=== PATIENT | female | born 1960 | race Two or more races ===

== ENCOUNTER 2024-05-28 19:32 | Emergency (ER) | payer MEDICAID, SELFPAY ==
[2024-05-28 19:47] VITALS: PULSE 103; O2SAT 99
--- NOTE | 2024-05-28 19:49 | EDNOTE_ITS ---
ED Syncope RME/HPI General Chief Complaint: Syncope / Near Syncope Stated Complaint: SYNCOPE Time Seen by Provider: 05/28/24 19:46 Arrival date/time: 05/28/24 19:32 RME / HPI RME / HPI narrative: 63 yo female patient BIBA for reported syncopal episode while arguing with family. She was standing next to family members and they reportedly lowered her to the ground. Episode lasted 10-15 seconds, then patient was alert and back to normal. No injury. Related Data Home Medications ?Medication ?Instructions ?Recorded ?Confirmed Fluoxetine Hcl 40 mg PO HS Depression #0 ca ps 01/22/13 06/04/17 gabapentin 300 mg capsule 300 mg PO QDAY JOINT PAIN #9 0 caps 01/22/13 06/04/17 loratadine 10 mg tablet 10 mg PO DAILY Allergies ##0 01/22/13 06/04/17 raloxifene 60 mg tablet (Evista) 60 mg PO DAILY CANCER #30 tabs 01/22/13 06/04/17 Aspirin Ec * (ECOTRIN *) 81 mg PO QDAY ##0 08/30/16 0 06/04/17 Losartan Potassium * (COZAAR *) 50 mg PO QDAY #0 tabs 08/30/16 06/04/17 Trazodone * (DESYREL *) 50 mg PO HS #0 tabs 08/30/16 06/04/17 aripiprazole 2 mg tablet (Abilify) 2 mg PO HS #0 tabs 08/30/16 06/04/17 atenolol 25 mg tablet (Tenormin) 25 mg PO QAM #0 tabs 08/30/16 06/04/17 clonazepam 0.5 mg tablet (Klonopin) 0.5 mg PO BID PRN ANXIETY #0 tabs 08/30/16 06/04/17 simvastatin 40 mg tablet (Zocor) 40 mg PO HS #0 tabs 0 08/30/16 06/04/17 linagliptin 2.5 mg-metformin 850 1 tab PO BID 05/25/17 06/04/17 mg tablet (Jentadueto) Previous Rx's ?Medication ?Instructions ?Recorded hydrocodone 5 mg-acetaminophen 325 1 tab PO Q6H PRN pa in #14 tabs 05/25/17 mg tablet ([place]) acetaminophen 300 mg-codeine 30 mg 1 tab PO Q6H PRN pa in #15 tabs 12/24/22 tablet hydrocodone 5 mg-acetaminophen 325 1 tab PO Q6H PRN pa in #15 tabs 12/24/22 mg tablet hydrocodone 5 mg-acetaminophen 325 1 tab PO Q6H PRN pa in #15 tabs 12/24/22 mg tablet ibuprofen 400 mg tablet 400 mg PO Q6H PRN pain #20 t abs 12/24/22 Allergies Allergy/AdvReac Type Severity Reaction Status Date / Time No Known Allergies Allergy Verified 06/04/17 19:13 Review of Systems Review of Systems Systems Reviewed: All systems reviewed, normal except as documented Discharge Plan Prescriptions/Referrals Prescriptions/Med Rec: No Action gabapentin 300 MG capsule 300 mg PO QDAY Qty: 90 raloxifene [Evista] 60 MG tablet 60 mg PO DAILY Qty: 30 loratadine 10 MG tablet 10 mg PO DAILY Qty: 0 Fluoxetine Hcl 20 MG capsule 40 mg PO HS Qty: 0 Aspirin Ec * (ECOTRIN *) 81 MG TABLET.DR 81 mg PO QDAY Qty: 0 clonazepam [Klonopin] 0.5 MG tablet 0.5 mg PO BID PRN (Reason: ANXIETY) Qty: 0 atenolol [Tenormin] 25 MG tablet 25 mg PO QAM Qty: 0 simvastatin [Zocor] 40 MG tablet 40 mg PO HS Qty: 0 aripiprazole [Abilify] 2 MG tablet 2 mg PO HS Qty: 0 Losartan Potassium * (COZAAR *) 50 MG tablet 50 mg PO QDAY Qty: 0 Trazodone * (DESYREL *) 50 MG tablet 50 mg PO HS Qty: 0 linagliptin-metformin [Jentadueto] 2.5-850 mg Tablet 1 tab PO BID hydrocodone-acetaminophen [[place]] 5-325 mg tablet 1 tab PO Q6H PRN (Reason: pain) Qty: 14 0RF hydrocodone-acetaminophen 5-325 mg tablet 1 tab PO Q6H MDD 4 PRN (Reason: pain) Qty: 15 0RF acetaminophen-codeine 300-30 mg tablet 1 tab PO Q6H PRN (Reason: pain) Qty: 15 0RF ibuprofen 400 mg tablet 400 mg PO Q6H PRN (Reason: pain) Qty: 20 0RF hydrocodone-acetaminophen 5-325 mg tablet 1 tab PO Q6H MDD 4 PRN (Reason: pain) Qty: 15 0RF Patient/Caregiver Discharge Instructions Print Language: Trinidadian
--- NOTE | 2024-05-28 19:56 | XR_ITS ---
Examination: AP chest single view Technique one AP portable upright chest single view Exam date and time: May 28, 2024 1936 hrs. Indications: Syncopal episode today. Findings: Mild vascular congestion. Normal heart size No aspiration pneumonia Impression: No aspiration pneumonia
--- NOTE | 2024-05-28 19:56 | EKG_ITS ---
[facility] Test Date: 2024-05-28 Pat Name: YAKOV XIE Department: Room: - Gender: Female Supervisor Mending: : 1960 Requested By: Esme Gómez Order Number: [id number] Reading MD: Esme Gómez Measurements Intervals [place] Rate: 98 P: 39 NH: 142 QRS: -4 QRSD: 86 T: 24 QT: 336 QTc: 430 Interpretive Statements SINUS RHYTHM POSSIBLE LEFT ATRIAL ENLARGEMENT [-0.1mV P-WAVE IN V1/V2] POSSIBLE LEFT VENTRICULAR HYPERTROPHY [VOLTAGE CRITERIA PLUS LAE OR QRS WIDENING] No previous ECG available for comparison /store/S0/[id number]
[2024-05-28 20:29] VITALS: BP 159/92; PULSE 104; RESP 18; TEMP 37.2; O2SAT 96
--- NOTE | 2024-05-28 20:41 | XR_ITS ---
Examination: CT brain head without contrast. 2-D sagittal coronal reconstructions Date and time of exam:May 28, 2024 1034 hrs. Indications: Syncopal episode 3 hours ago CTDI: vol (mGy):43.7 DLP: (mGycm):769 Technique: Multiple CT axial sections of the brain have been obtained, 5 mm slice thickness. Contrast has not been administered. 2-D sagittal, coronal reconstructions have been obtained Low dose protocols were performed. One or more of the following dose reduction techniques were used; automated exposure control, adjustment of the mA and/or KV according to patient size, use of iterative reconstruction technique. Findings: No significant ventricular enlargement. Intra-axial or extra-axial hemorrhage density is not seen. No mass effect or midline shift Basal cisterns are not remarkable. Fourth ventricle is midline. Cranial vault intact. Impression: Negative for acute hemorrhage, mass effect or midline shift Advise clinical correlation and follow-up accordingly
[2024-05-28 20:54] LABS: Basophils % (Auto) 0 % (0-2.5); Eosinophils # (Auto) 0.3 Thou/mm3 (0.0-0.5); Eosinophils % (Auto) 3 % (0-10); Hematocrit 49.8 % (36.0-46.0); Hemoglobin 15.7 g/dL (12.0-16.0); Immature Granulocytes % (Auto) 0 % (0-0); Immature Granulocytes Auto 0.03 Thou/mm3 (0.00-0.00); Lymphocytes % (Auto) 20 % (10-50); Mean Corpuscular HGB Conc 31.5 g/dl (31.0-37.0); Mean Corpuscular Hemoglobin 25.5 pg (25.0-35.0); Mean Corpuscular Volume 81 fL (80-100); Monocytes # (Auto) 0.7 Thou/mm3 (0.0-0.8); Monocytes % (Auto) 7 % (0-12); Neutrophils % (Auto) 70 % (37-80); Nucleated Red Blood Cell % 0 /100 WBC (0); Platelet Count 290 Thou/mm3 (140-440); RDW Standard Deviation 43.9 fL (36.4-46.3); Red Blood Count 6.15 Miln/mm3 (4.00-5.20)
[2024-05-28 21:05] LABS: Partial Thromboplastin Time 27.2 Seconds (22.0-36.0); Prothrombin Time 11.1 Seconds (9.0-12.2)
[2024-05-28 21:12] LABS: Anion Gap 7 (7-16); BUN/Creatinine Ratio 20 Ratio (12-20); Blood Urea Nitrogen 16 mg/dL (9-23); Carbon Dioxide 24.7 mMol/L (20.0-31.0); Chloride 109 mMol/L (98-107); Creatinine (Component) 0.8 mg/dL (0.6-1.3); Glucose 193 mg/dL (74-106); Sodium 141 mMol/L (136-145); eGFR > 60 See Note
[2024-05-28 21:13] LABS: Alanine Aminotransferase 12 U/L (10-49); Albumin, Serum 3.9 gm/dL (3.4-4.8); Albumin/Globulin Ratio 1.1 (1.2-2.2); Alkaline Phosphatase 77 U/L (46-116); Aspartate Amino Transferase 12 U/L (0-34); Bilirubin,Total 0.4 mg/dL (0.3-1.2); Calcium (Corrected) 9.1 mg/dL (8.5-10.1); Globulin 3.5 gm/dL (2.3-3.5); Lipase 54 U/L (12-53); Osmolality,Calculated 287 (275-295); Total Protein 7.4 gm/dL (5.7-8.2); Troponin I < 0.002 ng/mL (0.0-0.045)
[2024-05-28 21:29] LABS: B-Type Natriuretic Peptide 73 pg/mL (0-100)
[2024-05-28 22:21] VITALS: BP 145/90; PULSE 87; RESP 18; O2SAT 96
--- NOTE | 2024-05-28 23:06 | PD.EDADDENDU ---
Emergency Room Addendum Addendum Narrative: 2300: Care assumed from Dr. Steven. Past medical, surgical, social and family history reviewed. Vitals and home medications reviewed. Results and treatment plan discussed. I will assume the care of the patient at this time and will follow the patient, pending CT head. Please refer to the emergency department record for history and examination from initial visit.
[2024-05-28 23:46] VITALS: RESP 18
== END 2024-05-28 23:47 | disposition home or self-care (01) ==
PROVIDERS: Emergency Medicine; Emergency Provider Emergency Medicine; PCP Family Medicine
DX: R55 Syncope and collapse (principal)
CPT/HCPCS: 36415; 70450; 71045; 80053; 83690; 83735; 83880; 84484; 85025; 85610; 85730; 93005; 99284

== ENCOUNTER → 2024-06-14 | Outpatient (CLI) | payer MEDICAID, SELFPAY ==
--- NOTE | 2024-06-14 10:30 | XR_ITS ---
Examination: CT abdomen, without intravenous contrast. CT abdomen, with intravenous contrast. Sagittal and coronal 2-D reconstructions. Time of exam:June 14, 2024 1112 hours Comparison June 13, 2009 INDICATIONS: Right upper abdominal pain left upper abdominal pain beginning 3 months ago, history right kidney mass on ultrasound examination performed one month ago CTDI: vol (mGy) 11.6 DLP: (mGycm) 401 Technique: Multiple 3.0 mm axial noncontrast images of the abdomen have been obtained. Multiple 3.0 mm axial images post administration 60 cc Isovue-370 intravenous contrast have been obtained. Sagittal and coronal 3-D reconstructions have been obtained. Low dose protocols were performed. One or more of the following dose reduction techniques were used; automated exposure control, adjustment of the mA and/or KV according to patient size, use of iterative reconstruction technique. Findings: Fatty infiltration throughout the liver Spleen not enlarged No gallstones Right renal tumor mass upper pole, at least 12 x 11 x 10 cm with irregular margins enhancement The right renal vein is not well visualized No left renal mass Aorta is not enlarged No bowel obstruction IMPRESSION: 12 x 11 x 10 cm right renal tumor mass, consider MRI abdomen kidneys follow-up for best staging
== END | disposition home or self-care (01) ==
LOC: CCTX 10:08
PROVIDERS: Referring Provider Nurse Practitioner; Visit Provider Nurse Practitioner
DX: R19.00 Intra-abdominal and pelvic swelling, mass and lump, unspecified site (principal)
CPT/HCPCS: 74170; A4649; Q9967

== ENCOUNTER → 2024-06-22 | Outpatient (CLI) | payer MEDICAID, SELFPAY ==
--- NOTE | 2024-06-22 16:30 | XR_ITS ---
Examination: MRI abdomen with intravenous contrast. MRI abdomen without intravenous contrast. Date and time of exam: June 22, 2024, 1705 hours INDICATIONS: CT abdomen and pelvis June 14, 2024 upper pole right renal tumor mass 12 x 11 x 10 cm Technique: Multiple axial, sagittal and coronal sections of the abdomen obtained. Transverse images, TR 6020, TE 107. T1 weighted transverse images, TR 582, TE 9.5. T2-weighted sagittal images, TR 4000, TE 105. T2-weighted sagittal images, TR 4000, TE 5. Coronal images, TR 4210, TE 107. Axial and coronal images are obtained post 20 cc intravenous injection, gadolinium. Findings: No focal liver lesions Irregularly enhancing upper pole right renal tumor mass, 12 x 11 x 13 cm No obvious thrombus in the right renal vein Inferior vena cava is patent No ascites Spleen is not enlarged No left renal mass IMPRESSION: Irregularly enhancing upper pole right renal tumor mass, 12 x 11 x 13 cm as above
== END | disposition home or self-care (01) ==
PROVIDERS: PCP Nurse Practitioner; Referring Provider Physician Assistant; Visit Provider Physician Assistant
DX: N28.89 Other specified disorders of kidney and ureter (principal)
CPT/HCPCS: 74183; A4649; A9579

== ENCOUNTER → 2024-07-03 | Outpatient (CLI) | payer MEDICAID, SELFPAY ==
--- NOTE | 2024-07-03 07:36 | XR_ITS ---
Examination: Shoulder,right, 3 views Technique: Shoulder AP internal rotation, AP external rotation, Y view shoulder, 3 views Exam date and time :July 03, 2024 0800 hours INDICATIONS: Right shoulder pain and stiffness beginning 3 months ago. FINDINGS: Moderate osteopenia Mild calcific tendinitis Moderate narrowing glenohumeral joint No fracture IMPRESSION: Mild calcific tendinitis Moderate narrowing glenohumeral joint
== END | disposition home or self-care (01) ==
LOC: CDIM 07:23
PROVIDERS: Referring Provider Specialist; Visit Provider Specialist
DX: M75.31 Calcific tendinitis of right shoulder (principal); M25.811 Other specified joint disorders, right shoulder
CPT/HCPCS: 73030

== ENCOUNTER 2024-08-25 09:57 | Emergency (ER) | payer MEDICAID, SELFPAY ==
[2024-08-25 10:01] VITALS: PULSE 96; RESP 18; O2SAT 100; BMI 24.8
[2024-08-25 10:02] VITALS: BP 171/101; PULSE 106; RESP 18; TEMP 36.6; O2SAT 97
--- NOTE | 2024-08-25 10:19 | EDNOTE_ITS ---
ED General RME/HPI General Chief complaint: Urogenital-Female Stated complaint: URINATING BLOOD Time Seen by Provider: 08/25/24 10:21 Arrival date/time: 08/25/24 09:57 Limitations: no limitations RME / HPI RME / HPI narrative: DR. MINOR MAIN ED EVALUATION: 64 year old female with past medical history significant for right kidney mass diagnosed 06/2024 and left breast cancer in the past presents to the Emergency Department BIBA from home with complaints of hematuria, dark blood, and right flank pain. Pain is described as aching and rated 10/10. Per EMS, patient was hypertensive at 181/100, HR of 96, and satting at 97% on room air. Other PMHx include hypertension. Family history is significant for breast cancer and kidney cancer. Related Data Home Medications ?Medication ?Instructions ?Recorded ?Confirmed Fluoxetine Hcl 40 mg PO HS Depression #0 ca ps 01/22/13 06/04/17 gabapentin 300 mg capsule 300 mg PO QDAY JOINT PAIN #9 0 caps 01/22/13 06/04/17 loratadine 10 mg tablet 10 mg PO DAILY Allergies ##0 01/22/13 06/04/17 raloxifene 60 mg tablet (Evista) 60 mg PO DAILY CANCER #30 tabs 01/22/13 06/04/17 Aspirin Ec * (ECOTRIN *) 81 mg PO QDAY ##0 08/30/16 0 06/04/17 Losartan Potassium * (COZAAR *) 50 mg PO QDAY #0 tabs 08/30/16 06/04/17 Trazodone * (DESYREL *) 50 mg PO HS #0 tabs 08/30/16 06/04/17 aripiprazole 2 mg tablet (Abilify) 2 mg PO HS #0 tabs 08/30/16 06/04/17 atenolol 25 mg tablet (Tenormin) 25 mg PO QAM #0 tabs 08/30/16 06/04/17 clonazepam 0.5 mg tablet (Klonopin) 0.5 mg PO BID PRN ANXIETY #0 tabs 08/30/16 06/04/17 simvastatin 40 mg tablet (Zocor) 40 mg PO HS #0 tabs 0 08/30/16 06/04/17 linagliptin 2.5 mg-metformin 850 1 tab PO BID 05/25/17 06/04/17 mg tablet (Jentadueto) Previous Rx's ?Medication ?Instructions ?Recorded hydrocodone 5 mg-acetaminophen 325 1 tab PO Q6H PRN pa in #14 tabs 05/25/17 mg tablet ([place]) acetaminophen 300 mg-codeine 30 mg 1 tab PO Q6H PRN pa in #15 tabs 12/24/22 tablet hydrocodone 5 mg-acetaminophen 325 1 tab PO Q6H PRN pa in #15 tabs 12/24/22 mg tablet hydrocodone 5 mg-acetaminophen 325 1 tab PO Q6H PRN pa in #15 tabs 12/24/22 mg tablet ibuprofen 400 mg tablet 400 mg PO Q6H PRN pain #20 t abs 12/24/22 Allergies Allergy/AdvReac Type Severity Reaction Status Date / Time No Known Allergies Allergy Verified 06/04/17 19:13 Review of Systems Review of Systems Systems Reviewed: All systems reviewed, normal except as documented Past Medical History Past Medical History CARDIAC: Positive Cardiac Disorders, Hypercholesterolemia and Hypertension RESPIRATORY: Positive Asthma GASTROINTESTINAL: Positive Gastrointestinal Disorders and Gastroesophageal Reflux Disease REPRODUCTIVE: Positive Breast Cancer MUSCULOSKELETAL: Positive Osteoporosis ENDOCRINE: Positive Endocrine Disorders and Diabetes Mellitus Type 2 OTHER HISTORY: Positive Breast Cancer Family History FAMILY HISTORY: Positive Family Cardiac Disorders and Family Cancer Surgical History SURGICAL: Positive Hysterectomy Social History SMOKING STATUS: Never smoker SUBSTANCE USE: does not use ALCOHOL: Never ED Exam General Limitations: Present no limitations General appearance: Present alert and other (tearful, anxious, elevated blood pressure 181/100) Head Head exam: Present atraumatic, normocephalic and normal inspection Eye Eye exam: Present normal appearance, PERRL and EOMI ENT ENT exam: Present normal exam, normal oropharynx and mucous membranes moist Neck Neck exam: Present normal inspection, full ROM and trachea midline Chest Chest inspection: Present normal inspection and symmetric chest wall rise Respiratory Respiratory exam: Present normal lung sounds bilaterally Cardiovascular Cardiovascular exam: Present regular rate, normal rhythm and normal heart sounds Abdominal Exam Abdominal exam: Present soft, tenderness (right flank tenderness) and normal bowel sounds Extremities Exam Extremities exam: Present normal inspection and full ROM Back Exam Back exam: Present normal inspection and full ROM Neurological Exam Neurological exam: Present alert, oriented X3 and CN II-XII intact Psychiatric Psychiatric exam: Present normal affect and normal mood Skin Skin exam: Present warm, dry, intact and normal color Course Quality Measures none Orders Category Date Time Status Lokie Engineer NOW Care 08/25/24 10:22 Active Continuous Pulse Oximetry NOW Care 08/25/24 10:22 Active EKG (ED ONLY) *Do not use* NOW Care 08/25/24 10:22 Completed Insert IV NOW Care 08/25/24 10:22 Active EKG (ED Only) Stat Exams 08/25/24 10:22 Draft XR chest 1V portable Stat Exams 08/25/24 10:22 Completed CBC Stat Lab 08/25/24 10:50 Completed Comprehensive Metabolic Panel Stat Lab 08/25/24 10:50 Completed Partial Thromboplastin Time Stat Lab 08/25/24 10:50 Completed Prothrombin Time with INR Stat Lab 08/25/24 10:50 Completed Troponin I Stat Lab 08/25/24 10:50 Completed Urinalysis Stat Lab 08/25/24 12:55 Completed Morphine Inj Med 08/25/24 10:25 Discontinued 4 mg IVP X1 ONE Ondansetron Inj [Zofran Inj] Med 08/25/24 10:25 Discontinued 4 mg IVP X1 ONE Sodium Chloride 0.9% 1000 ml [Ns] 1,000 ml Med 08/25/24 10:22 Active IV 100 mls/hr cefTRIAXone [Rocephin] 2 gm Med 08/25/24 14:05 Discontinued SODIUM CHLORIDE 0.9% ([place]) [Ns 0.9% (P)] 50 ml IV X1 Vital Signs Vital signs: Vital Signs Temperature 97.9 F 08/25/24 10:02 Pulse Rate 106 H 08/25/24 10:02 Respiratory Rate 18 08/25/24 10:02 Blood Pressure 171/101 H 08/25/24 10:02 Pulse Oximetry (%) 97 08/25/24 10:02 Oxygen Delivery Method Room Air 08/25/24 10:02 Discharge Plan Plan Patient Disposition: HOME (Self Care) Patient condition on transfer: Stable Prescriptions/Referrals Prescriptions/Med Rec: No Action gabapentin 300 MG capsule 300 mg PO QDAY Qty: 90 raloxifene [Evista] 60 MG tablet 60 mg PO DAILY Qty: 30 loratadine 10 MG tablet 10 mg PO DAILY Qty: 0 Fluoxetine Hcl 20 MG capsule 40 mg PO HS Qty: 0 Aspirin Ec * (ECOTRIN *) 81 MG TABLET.DR 81 mg PO QDAY Qty: 0 clonazepam [Klonopin] 0.5 MG tablet 0.5 mg PO BID PRN (Reason: ANXIETY) Qty: 0 atenolol [Tenormin] 25 MG tablet 25 mg PO QAM Qty: 0 simvastatin [Zocor] 40 MG tablet 40 mg PO HS Qty: 0 aripiprazole [Abilify] 2 MG tablet 2 mg PO HS Qty: 0 Losartan Potassium * (COZAAR *) 50 MG tablet 50 mg PO QDAY Qty: 0 Trazodone * (DESYREL *) 50 MG tablet 50 mg PO HS Qty: 0 linagliptin-metformin [Jentadueto] 2.5-850 mg Tablet 1 tab PO BID hydrocodone-acetaminophen [[place]] 5-325 mg tablet 1 tab PO Q6H PRN (Reason: pain) Qty: 14 0RF hydrocodone-acetaminophen 5-325 mg tablet 1 tab PO Q6H MDD 4 PRN (Reason: pain) Qty: 15 0RF acetaminophen-codeine 300-30 mg tablet 1 tab PO Q6H PRN (Reason: pain) Qty: 15 0RF ibuprofen 400 mg tablet 400 mg PO Q6H PRN (Reason: pain) Qty: 20 0RF hydrocodone-acetaminophen 5-325 mg tablet 1 tab PO Q6H MDD 4 PRN (Reason: pain) Qty: 15 0RF Referrals: Casper Kennedy MD [Primary Care Provider] - In 1 week Problem List Clinical Impression: Hyperglycemia, Microscopic hematuria, Renal carcinoma Patient/Caregiver Discharge Instructions Additional Instructions: Please follow-up with your primary care physician within 2-3 days. Return to the Emergency Department as needed. Print Language: [place] Islander Stand Alone Forms: Stephania Award Info., Patient Portal Info Letter MDM Narrative [facility] hospital course: I, Rosey Carlson, am scribing for and in the presence of Dr. Minor. Labs are okay. Hyperglycemia, blood glucose was 163. Urine blood noted, microscopic hematuria. WBC is 7.8, no infection. Clinical Information Provided by patient and EMS Medical Records Reviewed [facility] and EMS Meds/Rx Considered, not Ordered None Labs/Rad/Tests considered, not Ordered None Chronic Illness/Social Conditions Add or document further as needed: Right kidney mass diagnosed 06/2024, left breast cancer, and hypertension. Family history is significant for breast cancer and kidney cancer. EKG Interpretation EKG #1: Date/time of EK08/25/24 10:34 am EKG interpretation: sinus rhythm, rate 85, no acute changes, TN interval 143 ms, QRS duration 85 ms, QT/QTc 360/402, P-R-T axis 48, 2, 29 Lab Interpretation Labs: see narrative above Imaging Radiology reports / interpretation(s): Procedure(s): XR chest 1V portable Accession Number(s): [id number] cc: Dominick Minor MD; Burak Palomares MD~ Examination: AP chest single view Technique one AP portable upright chest single view Indications: Shortness of breath coughing beginning 2 days ago. Findings: Mild bronchitis pattern. Normal heart size No lobar pneumonia or pulmonary edema Impression: Mild basilar bronchitis pattern Dictated By: Burak Palomares MD Medication Administration(s) Medication Administration History Sodium Chloride (Ns) 1,000 mls @ 100 mls/hr IV .Q10H ONE Stop: 08/25/24 20:21 Last Admin: 08/25/24 10:54 Dose: 100 mls/hr Documented By: TM Discontinued Medications Ceftriaxone Sodium 2 gm/ (Sodium Chloride) 50 mls @ 100 mls/hr IV X1 ONE Stop: 08/25/24 14:34 Last Admin: 08/25/24 14:24 Dose: 100 mls/hr Documented By: Morphine Sulfate (Morphine Sulf Inj 10 Mg/Ml Vial) 4 mg IVP X1 ONE Stop: 08/25/24 10:26 Last Admin: 08/25/24 10:51 Dose: 4 mg Documented By: TM Ondansetron HCl (Ondansetron Inj 2 Mg/Ml Inj 2 Ml) 4 mg IVP X1 ONE; Protocol Stop: 08/25/24 10:26 Last Admin: 08/25/24 10:51 Dose: 4 mg Documented By: TM Diagnosis Differential diagnosis: Kidney mass, kidney cancer, UTI Most likely dx, and/or detailed dx discussion: Hyperglycemia Microscopic hematuria Renal carcinoma Dispositon Disposition: Discharge Home
--- NOTE | 2024-08-25 10:22 | EKG_ITS ---
[facility] Test Date: 2024-08-25 Pat Name: YAKOV XIE Department: Room: - Gender: Female Cell [employer] Department Supervisor: : 1960 Requested By: Dominick Strickland Order Number: [id number] Reading MD: Dominick Strickland Measurements Intervals [place] Rate: 85 P: 48 [place]: 143 QRS: 2 QRSD: 85 T: 29 QT: 360 QTc: 430 Interpretive Statements SINUS RHYTHM Compared to ECG 05/28/2024 20:34:01 No significant changes /store/S0/[id number]
--- NOTE | 2024-08-25 10:22 | XR_ITS ---
Examination: AP chest single view Technique one AP portable upright chest single view Indications: Shortness of breath coughing beginning 2 days ago. Findings: Mild bronchitis pattern. Normal heart size No lobar pneumonia or pulmonary edema Impression: Mild basilar bronchitis pattern
[2024-08-25] MEDS: MORPHINE SULF INJ 10 MG/ML VIAL 4 MG IVP (10:51)
[2024-08-25] MEDS: ONDANSETRON INJ 2 MG/ML INJ 2 ML 4 MG IVP (10:51)
[2024-08-25] MEDS: SODIUM CHLORIDE 0.9% 1000 ML 1,000 ML 100 ML IV (10:54)
[2024-08-25 11:19] LABS: Basophils % (Auto) 0 % (0-2.5); Eosinophils # (Auto) 0.1 Thou/mm3 (0.0-0.5); Eosinophils % (Auto) 1 % (0-10); Hematocrit 48.5 % (36.0-46.0); Hemoglobin 15.7 g/dL (12.0-16.0); Immature Granulocytes % (Auto) 0 % (0-0); Immature Granulocytes Auto 0.02 Thou/mm3 (0.00-0.00); Lymphocytes # (Auto) 1.6 Thou/mm3 (1.0-4.8); Lymphocytes % (Auto) 20 % (10-50); Mean Corpuscular HGB Conc 32.4 g/dl (31.0-37.0); Mean Corpuscular Hemoglobin 25.8 pg (25.0-35.0); Mean Corpuscular Volume 80 fL (80-100); Monocytes # (Auto) 0.6 Thou/mm3 (0.0-0.8); Monocytes % (Auto) 7 % (0-12); Neutrophils # (Auto) 5.5 Thou/mm3 (1.8-7.7); Neutrophils % (Auto) 70 % (37-80); Nucleated Red Blood Cell % 0 /100 WBC (0); Platelet Count 252 Thou/mm3 (140-440); RDW Standard Deviation 43.8 fL (36.4-46.3); Red Blood Count 6.09 Miln/mm3 (4.00-5.20); White Blood Count 7.8 Thou/mm3 (3.6-11.0)
[2024-08-25 11:32] LABS: Alanine Aminotransferase 17 U/L (10-49); Albumin, Serum 4.3 gm/dL (3.4-4.8); Albumin/Globulin Ratio 1.4 (1.2-2.2); Alkaline Phosphatase 85 U/L (46-116); Anion Gap 12 (7-16); BUN/Creatinine Ratio 19 Ratio (12-20); Bilirubin,Total 0.3 mg/dL (0.3-1.2); Blood Urea Nitrogen 17 mg/dL (9-23); Carbon Dioxide 25.4 mMol/L (20.0-31.0); Chloride 104 mMol/L (98-107); Creatinine (Component) 0.9 mg/dL (0.6-1.3); Estimated Creatinine Clearance 48.7 mL/min (>60); Glucose 263 mg/dL (74-106); Osmolality,Calculated 291 (275-295); Prothrombin Time 10.9 Seconds (9.0-12.2); Sodium 141 mMol/L (136-145); Total Protein 7.3 gm/dL (5.7-8.2); Troponin I < 0.002 ng/mL (0.0-0.045); eGFR > 60 See Note
[2024-08-25 13:43] VITALS: BP 130/84; PULSE 92; RESP 17; TEMP 36.7; O2SAT 95
[2024-08-25 14:00] LABS: Collection Type, Urine Clean Catch
[2024-08-25] MEDS: cefTRIAXone 2 GM in SODIUM CHLORIDE 0.9% (Popper) 50 ML IV (14:24)
[2024-08-25 14:27] LABS: Bilirubin,Urine Negative (Negative); Blood,Urine 1+ (Negative); Clarity,Urine Clear (Clear/Hazy); Color,Urine Lt-Yellow (Lt Yel-Yel); Glucose, Urine 4+ (Negative); Ketones,Urine Negative (Negative); Leukocyte Esterase,Urine Negative (Negative); Nitrite,Urine Negative (Negative); Protein,Urine 1+ (Neg - Trace); RBC,Urine 14 /hpf (0-3); Specific Gravity,Urine 1.031 (1.001-1.035); Squamous Epithelial Cell,Urine 1 /hpf (0-5); Urobilinogen,Urine Negative mg/dL (0.0-1.0); WBC,Urine < 1 /hpf (0-5)
[2024-08-25 16:22] VITALS: BP 141/96; PULSE 88; RESP 16; TEMP 36.8; O2SAT 95
[2024-08-25 17:53] VITALS: BP 160/105; BP 182/100; PULSE 90; RESP 16; TEMP 36.7; O2SAT 97
--- NOTE | 2024-08-25 17:58 | PC.NURSE ---
PTS BP HIGH PRIOR TO DISCHARGE, PROVIDER MADE AWARE, MD MINOR TOLD THIS RN TO TELL PT TO TAKE MEDS WHEN SHE GETS HOME, PT AGREED. PT AMBULATES INDEPENDENTLY W/STEADY GAIT, GCS 15 AT THIS TIME
== END 2024-08-25 18:03 | disposition home or self-care (01) ==
PROVIDERS: Emergency Provider Family Medicine; PCP Family Medicine
DX: E11.65 Type 2 diabetes mellitus with hyperglycemia (principal); R31.29 Other microscopic hematuria; C64.9 Malignant neoplasm of unspecified kidney, except renal pelvis; R06.02 Shortness of breath; I10 Essential (primary) hypertension; E78.00 Pure hypercholesterolemia, unspecified; Z79.84 Long term (current) use of oral hypoglycemic drugs
CPT/HCPCS: 36415; 71045; 80053; 81001; 84484; 85025; 85610; 85730; 93005; 96361; 96365; 96375; 99284; J0696; J2270; J2405; J7030; J7050

== ENCOUNTER → 2024-09-20 | Outpatient (BNVA) | payer MEDICAID, SELFPAY | END | disposition home or self-care (01) | PROVIDERS: PCP Family Medicine; Referring Provider Orthopaedic Surgery; Visit Provider Urology | DX: N28.89 Other specified disorders of kidney and ureter (principal); E11.9 Type 2 diabetes mellitus without complications; I10 Essential (primary) hypertension; K21.9 Gastro-esophageal reflux disease without esophagitis; E78.00 Pure hypercholesterolemia, unspecified | CPT/HCPCS: 81003; 99203; G0463 ==

== ENCOUNTER → 2024-09-28 | Outpatient (BNVA) | payer MEDICAID, SELFPAY | END | disposition home or self-care (01) | PROVIDERS: PCP Family Medicine; Referring Provider Family Medicine; Visit Provider Urology | DX: N28.89 Other specified disorders of kidney and ureter (principal); E11.9 Type 2 diabetes mellitus without complications; I10 Essential (primary) hypertension; Z85.3 Personal history of malignant neoplasm of breast; Z80.9 Family history of malignant neoplasm, unspecified | CPT/HCPCS: 99212; G0463 ==

== ENCOUNTER 2024-10-03 13:20 | Emergency (ER) | payer MEDICAID, SELFPAY ==
[2024-10-03 13:22] VITALS: PULSE 76; RESP 20; O2SAT 98
[2024-10-03 13:26] VITALS: BP 175/79; PULSE 76; RESP 21; TEMP 37; O2SAT 98
--- NOTE | 2024-10-03 13:55 | PC.NURSE ---
Patient to er via ems with c/o 12/28 right mid abd pain radiating through right back , patient has h/o saud breast cancer resolved and now has right kidney cancer recently diagnosed in June 2024. Patient taking oral chemo pills daily, patient alert and oriented x 3, skin is warm dry and pink, Slime SALAS at bedside, new orders received. spouse at bedside. .
--- NOTE | 2024-10-03 13:58 | XR_ITS ---
Examination: CT abdomen with intravenous contrast CT pelvis with intravenous contrast 2-D coronal reconstructions 2-D sagittal reconstructions Date and time of exam:October 03, 2024 1522 hours INDICATIONS: Onset right-sided abdominal pain nausea vomiting right flank pain beginning one week ago, diagnosis right renal cell carcinoma undergoing chemotherapy, 12 x 11 x 10 cm right renal tumor on CT abdomen June 12, 2024. CTDI: vol (mGy) 6.83 DLP: (mGycm) 375 Technique: Multiple axial sections of the abdomen and pelvis have been obtained. 64 slice high-resolution scanner used. 3 mm axial sections have been obtained, post intravenous injection 40 cc Isovue-300 2-D sagittal, coronal reconstructions obtained. Low dose protocols were performed. One or more of the following dose reduction techniques were used; automated exposure control, adjustment of the mA and/or KV according to patient size, use of iterative reconstruction technique. Findings: No focal liver or splenic lesions Irregular enhancing upper right renal tumor mass again depicted, now measuring 13.5 x 11.6 x 15 cm without definite tumor thrombus in the IVC No left renal mass No obstruction No pericecal inflammatory change No diverticulitis Urinary bladder intact Moderate disc narrowing L5-S1 4 mm calcified disc L4-L5 level IMPRESSION: Enlarging enhancing irregular right renal tumor mass, now measuring 15 x 13 x 5 x 11.6 cm
--- NOTE | 2024-10-03 13:59 | PD.EDABDPN ---
ED Abdominal Pain RME/HPI General Chief Complaint: Abdominal Pain Stated complaint: ABD PAIN Time seen by provider: 10/03/24 13:52 Arrival date/time: 10/03/24 13:20 Source: patient Limitations: other RME / HPI RME / HPI narrative: 64-year-old female is here today with right-sided abdominal pain that woke her up at 2 AM. She states it was intermittent up until 2 hours ago when it became constant. She has nausea but no vomiting. No changes in bowel movements. No fevers or chills. She has a history of hypertension, diabetes, and hyperlipidemia. She has breast cancer and takes tamoxifen for this. She also was recently diagnosed earlier this year with a right sided, renal mass. She has no other acute complaints or concerns. Related Data Home Medications ?Medication ?Instructions ?Recorded ?Confirmed gabapentin 300 mg capsule 300 mg PO QDAY JOINT PAIN #90 caps 01/22/13 09/28/24 loratadine 10 mg tablet 10 mg PO DAILY Allergies ##0 01/22/13 09/28/24 raloxifene 60 mg tablet (Evista) 60 mg PO DAILY CANCER #30 tabs 01/22/13 09/28/24 Aspirin Ec * (ECOTRIN *) 81 mg PO QDAY ##0 08/30/16 09/28/24 atenolol 25 mg tablet (Tenormin) 25 mg PO QAM #0 tabs 08/30/16 09/28/24 alendronate 70 mg tablet 70 mg PO QWEEK 09/20/24 09/28/24 aripiprazole 2 mg tablet 2 mg PO QDAY 09/20/24 09/28/24 atorvastatin 40 mg tablet 40 mg PO QDAY 09/20/24 09/28/24 cholecalciferol (vitamin D3) 25 25 mcg PO QDAY 09/20/24 09/28/24 mcg (1,000 unit) capsule empagliflozin 25 mg tablet 25 mg PO QDAY 09/20/24 09/28/24 (Jardiance) fluoxetine 20 mg capsule 20 mg PO QDAY 09/20/24 09/28/24 hydrochlorothiazide 25 mg tablet 25 mg PO QDAY 09/20/24 09/28/24 losartan 100 mg tablet 100 mg PO QDAY 09/20/24 09/28/24 metformin 1,000 mg tablet 1,000 mg PO BID 09/20/24 09/28/24 montelukast 10 mg tablet 10 mg PO QDAY 09/20/24 09/28/24 semaglutide 0.25 mg or 0.5 mg (2 0.5 mg subcut QWEEK 09/20/24 09/28/24 mg/3 mL) subcutaneous pen injector (Ozempic) Previous Rx's ?Medication ?Instructions ?Recorded hydrocodone 5 mg-acetaminophen 325 1 tab PO BID PRN pain #10 tabs 10/03/24 mg tablet Allergies Allergy/AdvReac Type Severity Reaction Status Date / Time No Known Allergies Allergy Verified 09/28/24 08:49 Review of Systems Review of Systems Systems Reviewed: All systems reviewed, normal except as documented ED Exam General Limitations: Present other General appearance: Present alert and in no apparent distress Head Head exam: Present atraumatic Eye Eye exam: Present normal appearance, PERRL and EOMI ENT ENT exam: Present normal exam, normal oropharynx and mucous membranes moist Neck Neck exam: Present normal inspection, full ROM and trachea midline Chest Chest inspection: Present normal inspection and symmetric chest wall rise Respiratory Respiratory exam: Present normal lung sounds bilaterally Cardiovascular Cardiovascular exam: Present regular rate, normal rhythm and normal heart sounds Abdominal Exam Abdominal exam: Present soft and tenderness; Absent guarding, rebound or rigidity Extremities Exam Extremities exam: Present normal inspection and full ROM Back Exam Back exam: Present normal inspection and full ROM Neurological Exam Neurological exam: Present alert and oriented X3 Psychiatric Psychiatric exam: Present normal affect and normal mood Skin Skin exam: Present warm, dry, intact and normal color Course Quality Measures none Orders Category Date Time Status CT Screening NOW Care 10/03/24 13:58 Active Glucose [Bedside Blood Glucose] NOW Care 10/03/24 17:[address] abdomen pelvis w con Stat Exams 10/03/24 13:58 Completed CBC Stat Lab 10/03/24 14:00 Completed CMP [Comprehensive Metabolic Panel] Stat Lab 10/03/24 14:00 Completed Lactic Acid [Lactate (Lactic Acid)] Stat Lab 10/03/24 14:00 Completed Lactic Acid [Lactate (Lactic Acid)] Stat Lab 10/03/24 16:53 Completed Lipase Stat Lab 10/03/24 14:00 Completed UA, C/S IF [Urinalysis, C/S if Indicated] Stat Lab 10/03/24 14:40 Completed HYDROmorphone INJ [Dilaudid Inj] Med 10/03/24 16:29 Discontinued 1 mg IVP X1 ONE Morphine Inj Med 10/03/24 13:57 Discontinued 4 mg IVP X1 ONE Ondansetron Inj [Zofran Inj] Med 10/03/24 13:57 Discontinued 4 mg IVP X1 ONE Sodium Chloride 0.9% 1000 ml [Ns] 1,000 ml Med 10/03/24 14:53 Discontinued IV 999 mls/hr cephALEXin [Keflex] Med 10/03/24 17:52 Discontinued 500 mg PO X1 ONE Vital Signs Vital signs: Vital Signs Temperature 98.6 F 10/03/24 13:26 Pulse Rate 76 10/03/24 13:26 Respiratory Rate 21 H 10/03/24 13:26 Blood Pressure 175/79 H 10/03/24 13:26 Pulse Oximetry (%) 98 10/03/24 13:26 Oxygen Delivery Method Room Air 10/03/24 13:26 Abdominal Pain MDM MDM Narrative MDM Narrative:: 64-year-old female is here today with right-sided abdominal pain that woke her up at 2 AM. She states it was intermittent up until 2 hours ago when it became constant. She has nausea but no vomiting. No changes in bowel movements. No fevers or chills. She has a history of hypertension, diabetes, and hyperlipidemia. She has breast cancer and takes tamoxifen for this. She also was recently diagnosed earlier this year with a right sided, renal mass. She has no other acute complaints or concerns. On exam, patient is ill-appearing but nontoxic-appearing. Her vital signs are stable. She has no leukocytosis or anemia. Her glucose is 420 when she arrived. Urinalysis reveals 14 erythrocytes and 3 leukocytes. Patient received doses of Zofran, morphine, and later Dilaudid here. We will treat her for a UTI using cephalexin. Patient also received IV saline to reduce her blood sugar. Her blood sugar did improve throughout the ER course. I do not believe she has DKA. Patient's pain was improved throughout the ER course. A CT of the abdomen pelvis was also obtained there is no acute intra-abdominal pathology. She has a known renal mass that is enlarging. She states she has a follow-up appointment with her urologist next week for likely resection of this. She will be discharged with prescription of the cephalexin and Hayden for pain. She is invited return here at anytime for worsening or emergent changes. Patient data External records reviewed:: [facility] previous records Clinical information provided by:: patient Social determinants that could affect healthcare access:: none Patient has the following chronic illnesses:: Renal mass, diabetes, hypertension How is presenting disease/condition affected by chronic disease/condition?: exacerbated by Evaluation data The following diagnostics were reviewed and interpreted by me:: lab results (No leukocytosis or anemia. Metabolic panel reveals no acidosis, hyperglycemia is present) and radiology exam(s) (CT of the abdomen reveals enlarging renal mass, otherwise unremarkable) Lab and/or radiology exams considered but not ordered:: n/a Interpretation Summary: Renal mass, UTI Medications / Prescriptions Medications or Prescriptions considered but not ordered:: n/a Medication administrations:: Medication Administration History Discontinued Medications Cephalexin HCl (Cephalexin 250 Mg Capsule) 500 mg PO X1 ONE Stop: 10/03/24 17:53 Last Admin: 10/03/24 18:20 Dose: 500 mg Documented By: SAPNA Hydromorphone HCl (Hydromorphone Inj 2 Mg/Ml Vial) 1 mg IVP X1 ONE Stop: 10/03/24 16:30 Last Admin: 10/03/24 16:52 Dose: 1 mg Documented By: SAPNA Sodium Chloride (Ns) 1,000 mls @ 999 mls/hr IV .Q1H1M ONE Stop: 10/03/24 15:53 Last Infusion: 10/03/24 16:00 Dose: Infused Documented By: Admin: 10/03/24 15:02 Dose: 999 mls/hr Documented By: FENG Morphine Sulfate (Morphine Sulf Inj 10 Mg/Ml Vial) 4 mg IVP X1 ONE Stop: 10/03/24 13:58 Last Admin: 10/03/24 14:05 Dose: 4 mg Documented By: GAMA Ondansetron HCl (Ondansetron Inj 2 Mg/Ml Inj 2 Ml) 4 mg IVP X1 ONE; Protocol Stop: 10/03/24 13:58 Last Admin: 10/03/24 14:04 Dose: 4 mg Documented By: GAMA See above Consultations Consultation(s) initiated? (list below): No Diagnosis Differential diagnosis abdominal pain: abdominal pain, constipation, gastroenteritis and small bowel obstruction Most likely diagnosis given after review of the tests above:: Renal mass, UTI Admission Indicated Admission indicated?: not indicated Admission Request Was there a request for admission?: No Disposition Plan Disposition Plan: Discharge Discharge Attestation Discharge Attestation: The patient and all family members were given an opportunity to ask questions and understood the discharge instructions. Discharge instructions specifically effects, indications for sooner follow up or return to the emergency department, and the expected course of current diagnosis. Patient condition: Stable Discharge Plan Plan Patient Disposition: HOME (Self Care) Patient condition on transfer: Stable Prescriptions/Referrals Prescriptions/Med Rec: New hydrocodone-acetaminophen 5-325 mg tablet 1 tab PO BID MDD 10 PRN (Reason: pain) Qty: 10 0RF No Action metformin 1,000 mg tablet 1,000 mg PO BID losartan 100 mg tablet 100 mg PO QDAY hydrochlorothiazide 25 mg tablet 25 mg PO QDAY cholecalciferol (vitamin D3) 25 mcg (1,000 unit) capsule 25 mcg PO QDAY Jardiance 25 mg tablet 25 mg PO QDAY atorvastatin 40 mg tablet 40 mg PO QDAY montelukast 10 mg tablet 10 mg PO QDAY fluoxetine 20 mg capsule 20 mg PO QDAY aripiprazole 2 mg tablet 2 mg PO QDAY alendronate 70 mg tablet 70 mg PO QWEEK Ozempic 0.25 mg or 0.5 mg (2 mg/3 mL) pen injector 0.5 mg subcut QWEEK gabapentin 300 MG capsule 300 mg PO QDAY Qty: 90 raloxifene [Evista] 60 MG tablet 60 mg PO DAILY Qty: 30 loratadine 10 MG tablet 10 mg PO DAILY Qty: 0 Aspirin Ec * (ECOTRIN *) 81 MG TABLET.DR 81 mg PO QDAY Qty: 0 atenolol [Tenormin] 25 MG tablet 25 mg PO QAM Qty: 0 Referrals: Casper Kennedy MD [Primary Care Provider] - In 1 week Problem List Clinical Impression: UTI (urinary tract infection), Kidney mass Patient/Caregiver Discharge Instructions Education Materials: ED CYSTITIS Female Adult Additional Instructions: - Increase oral hydration and use the provided antibiotic as prescribed. - It is important to follow-up your primary doctor regarding her diabetes and better sugar control. - Follow-up with your urologist as planned. - Return here at anytime for any worsening or emergent changes. Print Language: Kazakh Stand Alone Forms: Stephania Award Info., Patient Portal Info Letter
[2024-10-03] MEDS: ONDANSETRON INJ 2 MG/ML INJ 2 ML 4 MG IVP (14:04)
[2024-10-03] MEDS: MORPHINE SULF INJ 10 MG/ML VIAL 4 MG IVP (14:05)
[2024-10-03 14:07] VITALS: BMI 25.2
[2024-10-03 14:14] LABS: Lactate (Lactic Acid) 2.6 mMol/L (0.4-2.0)
[2024-10-03 14:16] LABS: Basophils # (Auto) 0.0 Thou/mm3 (0.0-0.2); Basophils % (Auto) 0 % (0-2.5); Eosinophils # (Auto) 0.1 Thou/mm3 (0.0-0.5); Eosinophils % (Auto) 1 % (0-10); Hematocrit 51.3 % (36.0-46.0); Hemoglobin 16.6 g/dL (12.0-16.0); Immature Granulocytes Auto 0.04 Thou/mm3 (0.00-0.00); Lymphocytes # (Auto) 1.6 Thou/mm3 (1.0-4.8); Lymphocytes % (Auto) 17 % (10-50); Mean Corpuscular HGB Conc 32.4 g/dl (31.0-37.0); Mean Corpuscular Hemoglobin 25.4 pg (25.0-35.0); Mean Corpuscular Volume 79 fL (80-100); Monocytes # (Auto) 0.6 Thou/mm3 (0.0-0.8); Monocytes % (Auto) 6 % (0-12); Neutrophils # (Auto) 7.0 Thou/mm3 (1.8-7.7); Neutrophils % (Auto) 76 % (37-80); Nucleated Red Blood Cell # 0.00 Thou/mm3 (0.00-0.00); Nucleated Red Blood Cell % 0 /100 WBC (0); Platelet Count 247 Thou/mm3 (140-440); RDW Standard Deviation 40.7 fL (36.4-46.3); Red Blood Count 6.53 Miln/mm3 (4.00-5.20); White Blood Count 9.3 Thou/mm3 (3.6-11.0)
[2024-10-03 14:48] LABS: Alanine Aminotransferase 9 U/L (10-49); Albumin, Serum 4.5 gm/dL (3.4-4.8); Albumin/Globulin Ratio 1.1 (1.2-2.2); Alkaline Phosphatase 115 U/L (46-116); Anion Gap 11 (7-16); Aspartate Amino Transferase 12 U/L (0-34); BUN/Creatinine Ratio 17 Ratio (12-20); Bilirubin,Total 0.5 mg/dL (0.3-1.2); Blood Urea Nitrogen 20 mg/dL (9-23); Calcium 10.2 mg/dL (8.3-10.6); Calcium (Corrected) 10.2 mg/dL (8.5-10.1); Carbon Dioxide 25.7 mMol/L (20.0-31.0); Chloride 96 mMol/L (98-107); Creatinine (Component) 1.2 mg/dL (0.6-1.3); Estimated Creatinine Clearance 36.8 mL/min (>60); Globulin 4.1 gm/dL (2.3-3.5); Lipase 42 U/L (12-53); Osmolality,Calculated 286 (275-295); Potassium 4.2 mMol/L (3.4-5.1); Sodium 133 mMol/L (136-145); Total Protein 8.6 gm/dL (5.7-8.2); eGFR 51 See Note
[2024-10-03 14:49] LABS: Collection Type, Urine Voided
[2024-10-03 14:51] LABS: Glucose 420 mg/dL (74-106)
[2024-10-03 15:02] LABS: Bilirubin,Urine Negative (Negative); Blood,Urine 2+ (Negative); Clarity,Urine Clear (Clear/Hazy); Color,Urine Lt-Yellow (Lt Yel-Yel); Culture Indicated,Urine Not Indicated; Glucose, Urine 4+ (Negative); Ketones,Urine Negative (Negative); Leukocyte Esterase,Urine Negative (Negative); Nitrite,Urine Negative (Negative); PH,Urine 6.0 (5.0-7.0); Protein,Urine 1+ (Neg - Trace); RBC,Urine 14 /hpf (0-3); Specific Gravity,Urine 1.035 (1.001-1.035); Squamous Epithelial Cell,Urine 4 /hpf (0-5); Urobilinogen,Urine Negative mg/dL (0.0-1.0); WBC,Urine 3 /hpf (0-5)
[2024-10-03] MEDS: SODIUM CHLORIDE 0.9% 1000 ML 1,000 ML 999 ML IV (15:02)
[2024-10-03 16:11] VITALS: BP 152/69; PULSE 68; RESP 19; TEMP 36.4; O2SAT 99
--- NOTE | 2024-10-03 16:29 | PC.NURSE ---
Patient requesting more pain medication for 09/27 to right mid abd., Slime SALAS made aware.
[2024-10-03 16:51] VITALS: BP 183/119; PULSE 77; RESP 16; TEMP 36.6; O2SAT 99
[2024-10-03] MEDS: HYDROmorphone INJ 2 MG/ML VIAL 1 MG IVP (16:52)
[2024-10-03 17:00] LABS: Lactate (Lactic Acid) 1.2 mMol/L (0.4-2.0)
[2024-10-03 17:11] LABS: Reflex Lactate? Y
--- NOTE | 2024-10-03 18:09 | PC.NURSE ---
Patient 02 sats 80% on RA and patient c/o sob, 02 sats increased to 93% on 4l/02 via nasal cannula, patient unable to stand with out c/o increased SOB and weakness.
[2024-10-03 18:31] VITALS: BP 157/90; PULSE 61; RESP 15; TEMP 36.7; O2SAT 99
[2024-10-03 19:24] VITALS: BP 135/76; PULSE 72; RESP 16; TEMP 36.8; O2SAT 98
== END 2024-10-03 19:26 | disposition home or self-care (01) ==
PROVIDERS: Emergency Provider Physician Assistant Medical; PCP Family Medicine
DX: N39.0 Urinary tract infection, site not specified (principal); N28.89 Other specified disorders of kidney and ureter
CPT/HCPCS: 36415; 74177; 80053; 81001; 83605; 83690; 85025; 96361; 96374; 96375; 99284; A4649; J1171; J2270; J2405; J7030; Q9967; A9270

== ENCOUNTER 2024-10-04 11:57 | Emergency (ER) | payer MEDICAID, SELFPAY ==
[2024-10-04 11:59] VITALS: BP 168/91; PULSE 64; PULSE 66; RESP 18; RESP 20; TEMP 37.6; O2SAT 98; BMI 24.6
[2024-10-04] MEDS: SODIUM CHLORIDE 0.9% 1000 ML 1,000 ML 999 ML IV (13:16)
[2024-10-04] MEDS: HYDROmorphone INJ 2 MG/ML VIAL 1 MG IVP (13:16)
[2024-10-04] MEDS: ONDANSETRON INJ 2 MG/ML INJ 2 ML 4 MG IVP (13:16)
--- NOTE | 2024-10-04 13:26 | PD.EDABDPN ---
ED Abdominal Pain RME/HPI General Chief Complaint: Back Pain/Injury Stated complaint: KIDNEY PAIN Time seen by provider: 10/04/24 12:17 Arrival date/time: 10/04/24 11:57 Limitations: no limitations RME / HPI RME / HPI narrative: DR. MINOR MAIN ED EVALUATION: 64 year old female presents to the Emergency Department [facility] from home with complaint of right-sided flank pain radiating to the mid-abdomen. She has a known history of a right kidney tumor. The pain began yesterday, temporarily resolved, and then restarted around 0300 today. She reports taking Venus, with the most recent dose at 1100 this morning, which provided no relief. In addition to pain, the patient reports nausea and two episodes of vomiting. EMS administered Zofran 4 mg en route. She denies recent trauma. PMHx: Right kidney tumor, hypertension, diabetes mellitus, and hyperlipidemia. No known drug allergies. Patient has a right kidney mass removal surgery scheduled for October 09, 2024. Social Hx: No tobacco, alcohol, or substance use. Related Data Home Medications ?Medication ?Instructions ?Recorded ?Confirmed gabapentin 300 mg capsule 300 mg PO QDAY JOINT PAIN #90 caps 01/22/13 09/28/24 loratadine 10 mg tablet 10 mg PO DAILY Allergies ##0 01/22/13 09/28/24 raloxifene 60 mg tablet (Evista) 60 mg PO DAILY CANCER #30 tabs 01/22/13 09/28/24 Aspirin Ec * (ECOTRIN *) 81 mg PO QDAY ##0 08/30/16 09/28/24 atenolol 25 mg tablet (Tenormin) 25 mg PO QAM #0 tabs 08/30/16 09/28/24 alendronate 70 mg tablet 70 mg PO QWEEK 09/20/24 09/28/24 aripiprazole 2 mg tablet 2 mg PO QDAY 09/20/24 09/28/24 atorvastatin 40 mg tablet 40 mg PO QDAY 09/20/24 09/28/24 cholecalciferol (vitamin D3) 25 25 mcg PO QDAY 09/20/24 09/28/24 mcg (1,000 unit) capsule empagliflozin 25 mg tablet 25 mg PO QDAY 09/20/24 09/28/24 (Jardiance) fluoxetine 20 mg capsule 20 mg PO QDAY 09/20/24 09/28/24 hydrochlorothiazide 25 mg tablet 25 mg PO QDAY 09/20/24 09/28/24 losartan 100 mg tablet 100 mg PO QDAY 09/20/24 09/28/24 metformin 1,000 mg tablet 1,000 mg PO BID 09/20/24 09/28/24 montelukast 10 mg tablet 10 mg PO QDAY 09/20/24 09/28/24 semaglutide 0.25 mg or 0.5 mg (2 0.5 mg subcut QWEEK 09/20/24 09/28/24 mg/3 mL) subcutaneous pen injector (Ozempic) Previous Rx's ?Medication ?Instructions ?Recorded hydrocodone 5 mg-acetaminophen 325 1 tab PO BID PRN pain #10 tabs 10/03/24 mg tablet hydromorphone 2 mg tablet 2 mg PO Q8H prn pain #16 tabs 10/04/24 (Dilaudid) Allergies Allergy/AdvReac Type Severity Reaction Status Date / Time No Known Allergies Allergy Verified 10/04/24 12:05 Review of Systems Review of Systems Systems Reviewed: All systems reviewed, normal except as documented Past Medical History Past Medical History CARDIAC: Positive Hypercholesterolemia and Hypertension; Negative Cardiac Disorders or Congestive Heart Failure RESPIRATORY: Positive Asthma; Negative Chronic Obstructive Pulmonary Disease (COPD) GASTROINTESTINAL: Positive Gastrointestinal Disorders and Gastroesophageal Reflux Disease GENITOURINARY: Positive Renal Disease (Right kidney cancer on po chemo) REPRODUCTIVE: Positive Breast Cancer MUSCULOSKELETAL: Positive Osteoporosis ENDOCRINE: Positive Endocrine Disorders and Diabetes Mellitus Type 2; Negative Diabetes Mellitus Type 1 HEMATOLOGIC: Negative Sickle Cell Disease PSYCHO/SOCIAL: Positive Depression OTHER HISTORY: Positive Breast Cancer Family History FAMILY HISTORY: Positive Family Cardiac Disorders and Family Cancer Surgical History SURGICAL: Positive Hysterectomy Social History SMOKING STATUS: Never smoker SUBSTANCE USE: does not use ED Exam General Limitations: Present no limitations General appearance: Present alert and in no apparent distress Head Head exam: Present atraumatic, normocephalic and normal inspection Eye Eye exam: Present normal appearance, PERRL and EOMI ENT ENT exam: Present normal exam, normal oropharynx and mucous membranes moist Neck Neck exam: Present normal inspection, full ROM and trachea midline Chest Chest inspection: Present normal inspection and symmetric chest wall rise Respiratory Respiratory exam: Present normal lung sounds bilaterally Cardiovascular Cardiovascular exam: Present regular rate, normal rhythm and normal heart sounds Abdominal Exam Abdominal exam: Present soft and normal bowel sounds Extremities Exam Extremities exam: Present normal inspection and full ROM Back Exam Back exam: Present normal inspection and full ROM Neurological Exam Neurological exam: Present alert, oriented X3 and CN II-XII intact Psychiatric Psychiatric exam: Present normal affect and normal mood Skin Skin exam: Present warm, dry, intact and normal color Course Quality Measures none Orders Category Date Time Status Cut Off Saw Operator Metal STAT Care 10/04/24 13:05 Active Continuous Pulse Oximetry STAT Care 10/04/24 13:05 Completed NPO STAT Care 10/04/24 13:05 Active CBC Stat Lab 10/04/24 12:37 Completed Comprehensive Metabolic Panel Stat Lab 10/04/24 14:58 Completed Lipase Stat Lab 10/04/24 14:58 Completed Magnesium Stat Lab 10/04/24 14:58 Completed HYDROmorphone INJ [Dilaudid Inj] Med 10/04/24 13:05 Discontinued 1 mg IVP X1 ONE Ondansetron Inj [Zofran Inj] Med 10/04/24 13:06 Discontinued 4 mg IVP X1 ONE Pantoprazole Inj [Protonix Inj] Med 10/04/24 13:07 Discontinued 40 mg IVP X1 ONE Sodium Chloride 0.9% 1000 ml [Ns] 1,000 ml Med 10/04/24 13:05 Discontinued IV 999 mls/hr Vital Signs Vital signs: Vital Signs Temperature 99.7 F 10/04/24 11:59 Pulse Rate 66 10/04/24 11:59 Respiratory Rate 20 10/04/24 11:59 Blood Pressure 168/91 H 10/04/24 11:59 Pulse Oximetry (%) 98 10/04/24 11:59 Oxygen Delivery Method Room Air 10/04/24 11:59 Abdominal Pain MDM MDM Narrative MDM Narrative:: IRosey am scribing for and in the presence of Dr. Minor. Patient has a right kidney mass removal surgery scheduled for October 09, 2024. Advised to stop taking hydrocodone. Patient data External records reviewed:: [facility] previous records and EMS form Clinical information provided by:: patient and EMS Social determinants that could affect healthcare access:: none Patient has the following chronic illnesses:: Right kidney tumor, hypertension, diabetes mellitus, and hyperlipidemia. No known drug allergies. How is presenting disease/condition affected by chronic disease/condition?: exacerbated by Evaluation data The following diagnostics were reviewed and interpreted by me:: lab results Lab and/or radiology exams considered but not ordered:: none Interpretation Summary: See narrative above. Medications / Prescriptions Medications or Prescriptions considered but not ordered:: none Medication administrations:: Medication Administration History Discontinued Medications Hydromorphone HCl (Hydromorphone Inj 2 Mg/Ml Vial) 1 mg IVP X1 ONE Stop: 10/04/24 13:06 Last Admin: 10/04/24 13:16 Dose: 1 mg Documented By: EF Sodium Chloride (Ns) 1,000 mls @ 999 mls/hr IV .Q1H1M ONE Stop: 10/04/24 14:05 Last Infusion: 10/04/24 14:17 Dose: Infused Documented By: Admin: 10/04/24 13:16 Dose: 999 mls/hr Documented By: EF Ondansetron HCl (Ondansetron Inj 2 Mg/Ml Inj 2 Ml) 4 mg IVP X1 ONE; Protocol Stop: 10/04/24 13:07 Last Admin: 10/04/24 13:16 Dose: 4 mg Documented By: EF Pantoprazole Sodium (Pantoprazole Inj 40 Mg Vial) 40 mg IVP X1 ONE Stop: 10/04/24 13:08 Last Admin: 10/04/24 13:15 Dose: 40 mg Documented By: EF see above Consultations Consultation(s) initiated? (list below): No Diagnosis Differential diagnosis abdominal pain: abdominal pain, calculus of kidney and other (kidney cancer) Most likely diagnosis given after review of the tests above:: Kidney mass Flank pain Admission Indicated Admission indicated?: not indicated Admission Request Was there a request for admission?: No Disposition Plan Disposition Plan: Discharge Discharge Attestation Discharge Attestation: The patient and all family members were given an opportunity to ask questions and understood the discharge instructions. Discharge instructions specifically effects, indications for sooner follow up or return to the emergency department, and the expected course of current diagnosis. Patient condition: Stable Discharge Plan Plan Patient Disposition: HOME (Self Care) Patient condition on transfer: Stable Prescriptions/Referrals Prescriptions/Med Rec: New hydromorphone [Dilaudid] 2 mg tablet 2 mg PO Q8H MDD 3 Qty: 16 0RF No Action metformin 1,000 mg tablet 1,000 mg PO BID losartan 100 mg tablet 100 mg PO QDAY hydrochlorothiazide 25 mg tablet 25 mg PO QDAY cholecalciferol (vitamin D3) 25 mcg (1,000 unit) capsule 25 mcg PO QDAY Jardiance 25 mg tablet 25 mg PO QDAY atorvastatin 40 mg tablet 40 mg PO QDAY montelukast 10 mg tablet 10 mg PO QDAY fluoxetine 20 mg capsule 20 mg PO QDAY aripiprazole 2 mg tablet 2 mg PO QDAY alendronate 70 mg tablet 70 mg PO QWEEK Ozempic 0.25 mg or 0.5 mg (2 mg/3 mL) pen injector 0.5 mg subcut QWEEK gabapentin 300 MG capsule 300 mg PO QDAY Qty: 90 raloxifene [Evista] 60 MG tablet 60 mg PO DAILY Qty: 30 loratadine 10 MG tablet 10 mg PO DAILY Qty: 0 Aspirin Ec * (ECOTRIN *) 81 MG TABLET.DR 81 mg PO QDAY Qty: 0 atenolol [Tenormin] 25 MG tablet 25 mg PO QAM Qty: 0 hydrocodone-acetaminophen 5-325 mg tablet 1 tab PO BID MDD 10 PRN (Reason: pain) Qty: 10 0RF Problem List Clinical Impression: Kidney mass, Flank pain Patient/Caregiver Discharge Instructions Additional Instructions: Take Tylenol 500 mg 2 tabs every 6 hours PLUS Advil 200 mg gel 2 tablets as needed for pain. Stop taking Hydrocodone. Please follow-up with your primary care physician within 2-3 days. Return to the Emergency Department as needed. Print Language: Telugu Stand Alone Forms: Stephania Award Info., Patient Portal Info Letter
[2024-10-04 13:29] VITALS: PULSE 65
[2024-10-04 13:31] LABS: Basophils # (Auto) 0.0 Thou/mm3 (0.0-0.2); Basophils % (Auto) 0 % (0-2.5); Eosinophils # (Auto) 0.0 Thou/mm3 (0.0-0.5); Eosinophils % (Auto) 0 % (0-10); Hematocrit 48.3 % (36.0-46.0); Hemoglobin 15.9 g/dL (12.0-16.0); Immature Granulocytes Auto 0.05 Thou/mm3 (0.00-0.00); Lymphocytes # (Auto) 2.0 Thou/mm3 (1.0-4.8); Lymphocytes % (Auto) 18 % (10-50); Mean Corpuscular HGB Conc 32.9 g/dl (31.0-37.0); Mean Corpuscular Hemoglobin 25.4 pg (25.0-35.0); Mean Corpuscular Volume 77 fL (80-100); Monocytes # (Auto) 0.6 Thou/mm3 (0.0-0.8); Monocytes % (Auto) 5 % (0-12); Neutrophils # (Auto) 8.1 Thou/mm3 (1.8-7.7); Neutrophils % (Auto) 75 % (37-80); Nucleated Red Blood Cell # 0.00 Thou/mm3 (0.00-0.00); Nucleated Red Blood Cell % 0 /100 WBC (0); Platelet Count 232 Thou/mm3 (140-440); RDW Standard Deviation 39.4 fL (36.4-46.3); Red Blood Count 6.26 Miln/mm3 (4.00-5.20); White Blood Count 10.7 Thou/mm3 (3.6-11.0)
[2024-10-04 15:29] LABS: Alanine Aminotransferase < 7 U/L (10-49); Albumin, Serum 3.9 gm/dL (3.4-4.8); Albumin/Globulin Ratio 1.1 (1.2-2.2); Alkaline Phosphatase 96 U/L (46-116); Anion Gap 8 (7-16); Aspartate Amino Transferase 15 U/L (0-34); BUN/Creatinine Ratio 16 Ratio (12-20); Bilirubin,Total 0.6 mg/dL (0.3-1.2); Blood Urea Nitrogen 14 mg/dL (9-23); Calcium 9.0 mg/dL (8.3-10.6); Calcium (Corrected) 9.1 mg/dL (8.5-10.1); Carbon Dioxide 26.2 mMol/L (20.0-31.0); Chloride 103 mMol/L (98-107); Creatinine (Component) 0.9 mg/dL (0.6-1.3); Estimated Creatinine Clearance 48.5 mL/min (>60); Globulin 3.4 gm/dL (2.3-3.5); Glucose 260 mg/dL (74-106); Lipase 27 U/L (12-53); Magnesium 1.4 mg/dL (1.6-2.6); Osmolality,Calculated 283 (275-295); Potassium 4.7 mMol/L (3.4-5.1); Sodium 137 mMol/L (136-145); Total Protein 7.3 gm/dL (5.7-8.2); eGFR > 60 See Note
[2024-10-04 16:10] VITALS: BP 171/87; PULSE 71; RESP 15; O2SAT 96
== END 2024-10-04 16:11 | disposition home or self-care (01) ==
LOC: SERX 14:10
PROVIDERS: Emergency Provider Family Medicine; PCP Registered Nurse Pediatrics
DX: N28.89 Other specified disorders of kidney and ureter (principal)
CPT/HCPCS: 36415; 80053; 83690; 83735; 85025; 96361; 96374; 96375; 99284; J1171; J2405; J2470; J7030

== ENCOUNTER → 2024-10-22 | Outpatient (BNVA) | payer MEDICAID, SELFPAY | END | disposition home or self-care (01) | PROVIDERS: PCP Family Medicine; Referring Provider Family Medicine; Visit Provider Urology | DX: C64.1 Malignant neoplasm of right kidney, except renal pelvis (principal); E11.9 Type 2 diabetes mellitus without complications; I10 Essential (primary) hypertension; E78.00 Pure hypercholesterolemia, unspecified; K21.9 Gastro-esophageal reflux disease without esophagitis | CPT/HCPCS: 96372; 99212; J1580; A9270; G0463 ==

== ENCOUNTER → 2024-12-28 | Outpatient (CLI) | payer MEDICAID, SELFPAY ==
[2024-12-28 08:13] LABS: Misc Send Out* See Sep Rpt
[2024-12-28 08:55] LABS: Basophils # (Auto) 0.0 Thou/mm3 (0.0-0.2); Basophils % (Auto) 0 % (0-2.5); Eosinophils # (Auto) 0.2 Thou/mm3 (0.0-0.5); Eosinophils % (Auto) 3 % (0-10); Hematocrit 43.9 % (36.0-46.0); Hemoglobin 14.3 g/dL (12.0-16.0); Immature Granulocytes Auto 0.02 Thou/mm3 (0.00-0.00); Lymphocytes # (Auto) 2.8 Thou/mm3 (1.0-4.8); Lymphocytes % (Auto) 35 % (10-50); Mean Corpuscular HGB Conc 32.6 g/dl (31.0-37.0); Mean Corpuscular Hemoglobin 27.8 pg (25.0-35.0); Mean Corpuscular Volume 85 fL (80-100); Monocytes # (Auto) 0.4 Thou/mm3 (0.0-0.8); Monocytes % (Auto) 5 % (0-12); Neutrophils # (Auto) 4.6 Thou/mm3 (1.8-7.7); Neutrophils % (Auto) 57 % (37-80); Nucleated Red Blood Cell # 0.00 Thou/mm3 (0.00-0.00); Nucleated Red Blood Cell % 0 /100 WBC (0); Platelet Count 244 Thou/mm3 (140-440); RDW Standard Deviation 49.3 fL (36.4-46.3); Red Blood Count 5.14 Miln/mm3 (4.00-5.20); White Blood Count 8.1 Thou/mm3 (3.6-11.0)
[2024-12-28 09:05] LABS: Alanine Aminotransferase 28 U/L (10-49); Albumin, Serum 4.3 gm/dL (3.4-4.8); Albumin/Globulin Ratio 1.4 (1.2-2.2); Alkaline Phosphatase 88 U/L (46-116); Anion Gap 10 (7-16); Aspartate Amino Transferase 19 U/L (0-34); BUN/Creatinine Ratio 21 Ratio (12-20); Bilirubin,Direct < 0.1 mg/dL (0.0-0.3); Bilirubin,Total 0.4 mg/dL (0.3-1.2); Blood Urea Nitrogen 23 mg/dL (9-23); Calcium 9.5 mg/dL (8.3-10.6); Calcium (Corrected) 9.5 mg/dL (8.5-10.1); Carbon Dioxide 28.3 mMol/L (20.0-31.0); Cardiac Risk Estimate 3.6 RATIO (3.7-5.6); Chloride 103 mMol/L (98-107); Cholesterol 175 mg/dL (132-200); Creatinine (Component) 1.1 mg/dL (0.6-1.3); Globulin 3.0 gm/dL (2.3-3.5); Glucose 171 mg/dL (74-106); HDL Cholesterol 49 mg/dL (40-60); LDL Cholesterol,Calculated 60 mg/dL (0-130); Osmolality,Calculated 288 (275-295); Potassium 4.6 mMol/L (3.4-5.1); Sodium 141 mMol/L (136-145); Total Protein 7.3 gm/dL (5.7-8.2); Triglycerides 328 mg/dL (30-150); eGFR 56 See Note
== END | disposition home or self-care (01) ==
LOC: COPL 07:56
PROVIDERS: PCP Internal Medicine Cardiovascular Disease; Referring Provider Family Medicine; Visit Provider Urology
DX: C64.1 Malignant neoplasm of right kidney, except renal pelvis (principal); E78.5 Hyperlipidemia, unspecified; E87.5 Hyperkalemia; I10 Essential (primary) hypertension; R00.0 Tachycardia, unspecified; R00.2 Palpitations
CPT/HCPCS: 36415; 80053; 80061; 80076; 82248; 85025

== ENCOUNTER → 2025-01-15 | Outpatient (CLI) | payer MEDICAID, SELFPAY ==
--- NOTE | 2025-01-15 14:30 | XR_ITS ---
EXAMINATION: PA lateral chest 2 views TECHNIQUE: Upright PA and lateral chest 2 views Date and time: January 15, 2025, 1347 hours INDICATIONS: Diagnosis malignant neoplasm of right kidney FINDINGS: Normal heart size Lungs are clear, no pulmonary nodules Moderate osteopenia IMPRESSION: No active disease
--- NOTE | 2025-01-15 15:00 | XR_ITS ---
Examination: CT abdomen with intravenous contrast CT pelvis with intravenous contrast 2-D coronal reconstructions 2-D sagittal reconstructions Date and time of exam: January 15, 2025, 1618 hours, comparison October 03, 2024 INDICATIONS: Diagnosis malignant neoplasm of breast, history of right nephrectomy, CT examination October 04, 2023 enlarging irregular enhancing right renal mass. CTDI: vol (mGy) 13.3 DLP: (mGycm) 664 Technique: Multiple axial sections of the abdomen and pelvis have been obtained. 64 slice high-resolution scanner used. 3 mm axial sections have been obtained, post intravenous injection of 30 cc [id number] 2-D sagittal, coronal reconstructions obtained. Low dose protocols were performed. One or more of the following dose reduction techniques were used; automated exposure control, adjustment of the mA and/or KV according to patient size, use of iterative reconstruction technique. Findings: No focal liver or splenic lesions GE junction sutures Negative for gallstones No pancreatic mass or dilated pancreatic duct Absent right kidney, no tumor in the right renal fossa No left renal mass lesion Aorta normal size No bowel obstruction Scattered colonic diverticulosis, no diverticulitis Urinary bladder intact Advances during L5-S1 IMPRESSION: No interval metastatic disease
== END | disposition home or self-care (01) ==
PROVIDERS: PCP Family Medicine; Referring Provider Urology; Visit Provider Urology
DX: C64.1 Malignant neoplasm of right kidney, except renal pelvis (principal)
CPT/HCPCS: 71046; 74177; A4649; Q9967

== ENCOUNTER 2025-03-06 08:54 | Outpatient (RCR) | payer MEDICAID, SELFPAY ==
--- NOTE | 2025-03-06 10:25 | CTCCONSULT_ITS ---
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 No sarcomatoid or rhabdoid differentiation was noted surgery following surgery patient was seen by outside oncologist and patient was told that patient cannot receive treatment with them and patient was referred to us. Patient also have a history of breast cancer has been under the care of Dr. Elizabeth hodges cysts 2000 taking raloxifene for maintenance. Patient now comes here to establish care for her kidney cancer. Patient also have complaints of pain especially in the mid back area. Pain do not radiate. Patient is concerned that her cancer has already progressed. Patient's last scan did not show. DIAGNOSIS: Right kidney, segment at ureter and right adrenal, robotic radical nephrectomy: Kidney 3M ureter: - Clear-cell renal cell carcinoma, WHO/ISUP grade 64, 14 cm in maximum dimension, completely excised ? Carcinoma invoivesthe pelvlcelyceal system, the renal sinus and perinephric tat - Extensive tumor cell necrosis present, 40% - Vascular space invasion present - Pathologic stage (AJCC eighth edition): pT3a pN not assigned, no nodes submitted or iound Adrenal gland: ? Negative for malignancy OTHER MEDICAL HISTORY/CONDITIONS: Renal cancer Diabetes HTN Hyperlipidemia Osteoporosis Depression ALISON-?BSO?-?20yrs?ago FAMILY HISTORY: SOCIAL HISTORY: Education?Level:?Completed 11th grade Marital?Status:? Tobacco?Use:?Denies ETOH?Use:?Denies Drug?Note:?Denies Social?History?Note:?Lives?with? CONTRACT ADMIN HISTORY: Menarche?-?Age:?12 Hormone?Use:? control medication x 3 yrs :?5 Live?Births:?3 Age?1st?:?20 Gynecological?Note:?2?miscarriages MEDICATIONS: 1. None Medications Never Reconciled ALLERGIES: No Known Drug Allergies REVIEW OF SYSTEMS: A complete 14-point review of systems was performed and is negative except as noted in interval history. PHYSICAL EXAMINATION: VITAL SIGNS: Temperature?99.2, B/P?105/72, Height?59?inches, Oxygen?Saturation?97% Weight?134?lbs PAIN: 5 - Between moderate and severe pain GENERAL APPEARANCE: Appears well, in no apparent distress, appropriately interactive. HEENT: Normocephalic, no temporal wasting, normal conjunctiva, no scleral icterus, normal hearing, lips without lesions, neck normal range of motion. CARDIOVASCULAR: Not assessed. PULMONARY: Normal respiratory effort, no respiratory distress or use of accessory muscles, speaking in full sentences, no tachypnea. EXTREMITIES: No pedal edema or cyanosis. SKIN: Normal skin appearance. NEUROLOGIC: Alert and oriented x4. PSHYCHIATRIC: Appropriate affect, mood normal, behavior normal, intact thought and speech. LABORATORY DATA: I have personally reviewed and interpreted each of the patient?s relevant lab tests, abnormal findings are below: Date ASSESSMENT/PLAN: Right renal cancer status post nephrectomy T4 tumor but no lymph nodes were removed Will start on immunotherapy with pembrolizumab Will get PET CT scan to evaluate for metastatic disease If she has no residual disease will continue with pembrolizumab If patient have confirmed metastatic disease will add axitinib 5 mg RTC with the PET CT scan brain MRI x-ray of the spine MRD -Kathy ordered NGS panel on pathology specimen PET CT scan to evaluate metastatic disease TSH T3-T4 IR referral for portacatheter placement RTC after PET CT scan and brain MRI ORDERS: Order # Description [id number] Initial PET/CT of Skull to Mid-Thigh [id number] Thyroid Stimulating Hormone + Assay Triiodothyronine (T3) 1014817 Lumbar + Thoracic + Cervical + Plain Films [id number] Follow Up 2 Months [id number] Comprehensive Metabolic Panel - 12 + CBC with Auto Diff [id number] MRI + Brain + With W/O Contrast [id number] CBC + Comprehensive Metabolic Panel [id number] Lab Appointment [id number] Follow Up Appointment [id number] CBC + Comprehensive Metabolic Panel [id number] Lab Appointment [id number] Follow Up Appointment [id number] CBC + Comprehensive Metabolic Panel [id number] Lab Appointment [id number] Follow Up Appointment [id number] CBC + Comprehensive Metabolic Panel [id number] Lab Appointment [id number] Follow Up Appointment [id number] CBC + Comprehensive Metabolic Panel [id number] Lab Appointment [id number] Follow Up Appointment [id number] CBC + Comprehensive Metabolic Panel [id number] Lab Appointment [id number] Follow Up Appointment [id number] CBC + Comprehensive Metabolic Panel [id number] Lab Appointment [id number] Follow Up Appointment [id number] CBC + Comprehensive Metabolic Panel [id number] Lab Appointment [id number] Follow Up Appointment [id number] CBC + Comprehensive Metabolic Panel [id number] Lab Appointment [id number] Follow Up Appointment [id number] CBC + Comprehensive Metabolic Panel [id number] Lab Appointment [id number] Follow Up Appointment [id number] CBC + Comprehensive Metabolic Panel [id number] Lab Appointment [id number] Follow Up Appointment [id number] CBC + Comprehensive Metabolic Panel [id number] Lab Appointment [id number] Follow Up Appointment RETURN TO CLINIC: I reviewed the diagnosis, prognosis, and recommended treatment/procedure options with the patient (and/or their legal customer loyalty representative), including the potential benefits, risks, side effects and alternative therapies. We also discussed the option of no treatment and the possibility of clinical trial participation, if applicable. All questions were addressed, and they demonstrated understanding. They provided informed consent to proceed with the proposed plan of care. BILLING AND COMPLIANCE: I reviewed external records from providers outside my specialty as summarized above. I spent a total of 50 minutes on this patient?s care on the day of their visit excluding time spent related to any billed procedures. This time includes time spent with the patient as well as time spent documenting in the medical record, reviewing patients records and tests, obtaining history, placing orders, communicating with other healthcare professionals, counseling the patient, family or caregiver, and/or care coordination for the diagnoses above. Electronically Signed by: Rah Denise MD T: 10:22 AM CC: PCP: Rah Denise Referring: Rah Denise This document was completed utilizing speech recognition software. Grammatical errors, random word insertions, pronoun errors, and incomplete sentences are an occasional consequence of this system due to software limitations, ambient noise, and hardware issues. Any formal questions or concerns about the content, text or information contained within the body of this dictation should be directly addressed to the provider for clarification.
== END 2025-03-20 23:59 | disposition home or self-care (01) ==
LOC: SCTC 08:54
PROVIDERS: PCP Physician Assistant; Referring Provider Internal Medicine Hematology & Oncology; Visit Provider Internal Medicine Hematology & Oncology
DX: C64.1 Malignant neoplasm of right kidney, except renal pelvis (principal); Z90.5 Acquired absence of kidney
CPT/HCPCS: 99212; G0463